=== PATIENT | male | born 1955 | race Caucasian/White ===

== ENCOUNTER → 2022-11-16 | Outpatient (REF) | payer OTHER | LOC: M LAB REF 13:05 | PROVIDERS: ATTEND Plastic Surgery Surgery of the Hand | DX: C44.301 Unspecified malignant neoplasm of skin of nose (principal) ==

== ENCOUNTER → 2022-12-23 | Outpatient (REF) | payer OTHER | LOC: M LAB REF 12:24 | PROVIDERS: ATTEND Plastic Surgery Surgery of the Hand | DX: C44.311 Basal cell carcinoma of skin of nose (principal) ==

== ENCOUNTER 2023-01-28 06:48 | Day surgery (SDC) | payer OTHER ==
[~2023-01-28] VITALS: Ht 170.2 cm; Wt 70.9 kg
[~2023-01-28 06:48] MED LIST: ATOR1TAB21 PO; PRED5PAK2 PO; ceFAZolin SOD 2 GM in IV 1 EA IV ONE
[2023-01-28] MEDS ORDERED: LR 1,000 ML IV SCH (07:15)
[2023-01-28] MEDS ORDERED: LIDOCAINE 2% 100MG/5ML SDV (FOR ANES.) As Ordered ONE (07:39)
[2023-01-28] MEDS ORDERED: propofoL 200 MG/20 ML VIAL As Ordered ONE ×2 (07:39→08:41)
[2023-01-28] MEDS ORDERED: ONDANSETRON 4MG 2ML VIAL As Ordered ONE (07:39)
[2023-01-28] MEDS ORDERED: fentaNYL 100 MCG/2 ML INJECTION As Ordered ONE (07:40)
[2023-01-28] MEDS ORDERED: MIDAZOLAM INJ 2MG/2ML VIAL As Ordered ONE (07:40)
[2023-01-28] MEDS ORDERED: dexmedeTOMIDine (4MCG/ML)200MCG/50ML BTL (PRECEDEX) As Ordered ONE (08:43)
[2023-01-28] MEDS ORDERED: LIDOCAINE W/EPINEPHRINE 1% 20ML VIAL As Ordered ONE (09:30)
[2023-01-28] MEDS ORDERED: BACITRACIN OINTMENT 30GM TUBE As Ordered ONE (09:30)
[2023-01-28] MEDS ORDERED: POVIDONE-IODINE 5% OPHTH PREP SOL 30ML As Ordered ONE (09:33)
[2023-01-28] MEDS ORDERED: ACETAMINOPHEN 1000MG 100ML IV BAG As Ordered ONE (10:33)
[2023-01-28 12:12] VITALS: BP 138/63; TEMP 96.8; O2SAT 99
== END 2023-01-28 12:17 | disposition home or self-care (01) ==
LOC: M SDC 06:48
PROVIDERS: ATTEND Plastic Surgery Surgery of the Hand
DX: C44.311 Basal cell carcinoma of skin of nose (principal)
CPT/HCPCS: 11643; 12031; 64400; 88305; 88331; J0131; J0690; J1100; J2250; J2405; J3010